=== PATIENT | male | born 1965 | race American Indian/Alaskan Native ===

== ENCOUNTER 2024-10-24 12:14 | Emergency (ER) | payer OTHER ==
[~2024-10-24] VITALS: Ht 170.2 cm; Wt 64.9 kg
[2024-10-24] MEDS ORDERED: SODIUM CHLORIDE 0.9% 500 ML IV PRN (12:30)
[2024-10-24 12:33] LABS: BASOPHILS 1.4 % (0-2); EOSINOPHILS 3.5 % (0-6); HEMATOCRIT 30.1 % (35.0-50.0); HEMOGLOBIN 10.3 g/dL (12.0-18.0); LYMPHOCYTES 16.8 % (24-44); MCH 34.6 (27-36); MCHC 34.3 g/dl (30-36); MCV 100.9 fl (81-99); MONOCYTES 12.1 % (0-12); NEUTROPHILS 66.2 % (39-80); PLATELET COUNT 226 K/uL (140-440); RBC 2.98 M/ul (4.3-5.7); RDW 12.8 (10.5-15.0)
[2024-10-24 12:40] LABS: ALBUMIN 3.2 g/dL (3.4-5.0); ALBUMIN/GLOBULIN RATIO 0.91 (1.1-2.4); ANION GAP 17.6 (7-21); BILIRUBIN, TOTAL 0.6 ng/dL (0.2-1.0); BUN/CREATININE RATIO 10.93 (6.0-28.6); CALCIUM 8.7 mg/dL (8.5-10.1); CREATININE, SERUM 1.28 mg/dL (0.70-1.30); MAGNESIUM 1.5 mg/dL (1.8-2.4); POTASSIUM 3.6 mmol/L (3.5-5.1); PROTEIN, TOTAL 6.7 g/dL (6.4-8.2)
[2024-10-24] MEDS ORDERED: MAGNESIUM OXIDE 400 MG TABLET PO ONE (13:00)
[2024-10-24] MEDS ORDERED: MAGNESIUM SULFATE 2 GM/50 ML BAG IV ONE (13:00)
[2024-10-24] MEDS ORDERED: MAGNESIUM400 MG PO (13:55)
[2024-10-24 14:25] VITALS: BP 122/71
== END 2024-10-24 14:25 | disposition home or self-care (01) ==
LOC: ED 12:14
PROVIDERS: Emergency Medicine
DX: E83.42 Hypomagnesemia (principal); R53.1 Weakness; F10.10 Alcohol abuse, uncomplicated; Y90.5 Blood alcohol level of 100-119 mg/100 ml
CPT/HCPCS: 36415; 80053; 83735; 85025; 96365; 99283-25; G0480; J3475; J7040

== ENCOUNTER 2025-07-20 19:13 | Inpatient (IN) | payer OTHER ==
[~2025-07-20] VITALS: Ht 172.7 cm; Wt 64.3 kg
[~2025-07-20 19:13] MED LIST: MAGNESIUM400 MG PO
[2025-07-20 19:26] LABS: BASOPHILS 0.8 % (0.2-1.2); EOSINOPHILS 5.8 % (0.8-7.0); LYMPHOCYTES 36.2 % (21.8-53.1); MCH 33.2 PG (25.7-32.2); MCHC 36.2 g/dL (32.3-36.5); MCV 91.8 fL (79.0-92.2); MONOCYTES 9.7 % (5.3-12.2); NEUTROPHILS 47.3 % (34.0-67.9); RBC 2.80 M/uL (4.63-6.08)
[2025-07-20 19:58] LABS: ABO O; ANTIBODY SCREEN NEGATIVE; RH POSITIVE
[2025-07-20 20:15] LABS: ALCOHOL, MEDICAL 281.0 ng/dL (<3); ALT (SGPT) 60.0 U/L (14-59); AST (SGOT) 75.0 U/L (15-37); GLOMERULAR FILTRATION RATE,EST 120.0 mL/min (>60); PROTEIN, TOTAL 6.6 g/dL (6.4-8.2); UREA NITROGEN 2.0 mg/dL (7-18)
[2025-07-20 20:22] LABS: BLOOD/HGB, URINE TRACE-I (Negative); KETONE, URINE NEGATIVE (Negative); LEUK ESTERASE, URINE NEGATIVE (negative); NITRITE, URINE NEGATIVE (negative)
[2025-07-20] MEDS ORDERED: SODIUM CHLORIDE 0.9% 1,000 ML IV PRN (20:30)
[2025-07-20 20:31] LABS: BACTERIA, URINE NONE SEEN /hpf (negative); CASTS, URINE NONE SEEN \\lpf; CRYSTALS, URINE NONE SEEN (0-1+); EPITHELIAL CELLS, URINE SQUAMOUS 1+ /lpf (0-1+); REFLEX CULTURE, URINE No (No)
[2025-07-20 20:37] LABS: AMPHETAMINES, URINE NEGATIVE (NEGATIVE); BARBITURATES, URINE NEGATIVE (NEGATIVE); BENZODIAZEPINE, URINE NEGATIVE (NEGATIVE); CANNABINOID, URINE NEGATIVE (NEGATIVE); COCAINE, URINE NEGATIVE (NEGATIVE); ECSTASY, URINE NEGATIVE (NEGATIVE); FENTANYL, URINE NEGATIVE (NEGATIVE); METHADONE, URINE NEGATIVE (NEGATIVE); OPIATES, URINE NEGATIVE (NEGATIVE); OXYCODONE, URINE NEGATIVE (NEGATIVE); PHENCYCLIDINE, URINE NEGATIVE (NEGATIVE)
[2025-07-20] MEDS ORDERED: DIPHTH,PERTUSS(ACELL),TET VAC 0.5 ML SYRINGE IM ONE (21:00)
[2025-07-20] MEDS ORDERED: THIAMINE HCL 200 MG/2 ML VIAL IV ONE (21:00)
[2025-07-20] MEDS ORDERED: SODIUM CHLORIDE 0.9% 1,000 ML IV SCH (21:30)
[2025-07-20] MEDS ORDERED: ACETAMINOPHEN 325 MG TAB PO PRN (21:30)
[2025-07-20] MEDS ORDERED: LIDOCAINE 2% VISCOUS 6 ML SYR TOP ONE (21:45)
--- NOTE | 2025-07-20 22:15 | NUR ---
pt ARRIVED TO CCU ROOM #126 FROM ED VIA ED STRETCHER WITH ED RN VIKY. pt AWAKE AND INSTERACTIVE WITH STAFF. C-COLLAR REMAINS IN PLACE, TO BE LEFT ON UNTIL CLEARED TO REMOVE BY MD PER REPORT. BED ALARM ON FOR SAFETY. pt TRANSFERRED TO CCU BED, pt ABLE TO SCOOT SELF OVER. VSS, pT ON RA. RR EVEN AND UNLABORED. IV SITES X2 WNL, BRISK BLOOD RETURN NOTED. IV FLUIDS HUNG AND INFUSNG DIRECTED VIA RIGHT AC SITE. HEART MONITOR IN PLACE, SINUS RHYTHM WITH HR WNL. MALE PUREWICK IN PLACE AND HOOKED TO WALL SUCTION-HAD IN PLACE WHNE ARRIVED FROM ED. 1CM ABRASION AND 2CM LACERATION REPORTED TO BACK OF HEAD, SUPERVISOR TRANSFERRING AND BOXING WITH NO RAGHAVENDRA, SUTURES, ECT. CHUCKS PLACED BEHIND HEAD WITH VERY SCANT CONTACT DRAINAGE D/T POSITON OF WOUNDS AND pt LAYING IN BED. PUPILS ROUND, EQUAL AND REACTIVE TO LIGHT. pt ENGAGING WITH STAFF, A/O TO SELF AND PLACE, KNEW MONTH BUT THOUGHT IT WAS " OR 2024". EQUAL STRENGTH NOTED TO BUE AND BLE. pt DENIES NUMBNESS AND TINGLING. REPORTS SOME PAIN TO LEFT SHOULDER, BUT REPORTS THIS IS CHRONIC D/T HEAVY LIFTING. SMALL ABRASION ALSO NOTED TO LEFT ELBOW WHEN COMPLETING SKIN CHECK WITH SECOND LETI SALMON.
[2025-07-20 22:20] VITALS: BP 161/88
[2025-07-20 23:00] VITALS: BP 163/77; BP 176/94
--- NOTE | 2025-07-20 23:00 | NUR ---
PERSON TO CONTACT/NIECE EVERT MARES CALLED AND ASKED HOW pt WAS DOING. NISHAYY ASKED IF THERE WERE RAGHAVENDRA OR SUTURES TO pt's HEAD WOUNDS, UPDATED THERE WAS NOT AND THAT ABRASION AND LACERATION ARE HOLDEN AND DO NOT REQUIRE FURTHER INTERVENTION IN REGARDS TO WOUND CLOSURE PER REPORT FROM ED MD. CHARELY TRANSFERRED TO pt ROOM AND TALKING TO pt VIA PHONE. BED ALARM ON AND CALL LIGHT IN REACH.
--- NOTE | 2025-07-20 23:15 | NUR ---
male external catheter leaking, keaton aleman in room to remove and complete kyara care. new gown in place and pt boosted in bed. keaton aleman completed new admit bedside swallow eval and provided pt with prn tylenol. call light in reach and bed alarm on for safety.
[2025-07-21] VITALS (8 sets, daily range): BP systolic 102–169; BP diastolic 69–94
--- NOTE | 2025-07-21 00:27 | NUR ---
CHARLEY MARES CALLED AGAIN ASKING HOW pt WAS DOING. UPDATED THAT pt RECEIVED PRN TYLENOL AND IS NOW SLEEPING IN BED. CHARLEY ASKED AGAIN IF THE pt HAS RAGHAVENDRA OR SUTURES FOR HIS HEAD WOUND, EDUCATED THAT PER ED MD WOUNDS DID NOT REQUIRE SUCH INTERVENTIONS. CHARLEY ASKED IF pt HAD AN IV, EDUCATED THAT pt DOES HAVE TWO AND IS RECEIVING IV FLUIDS. NO FURTHER QUESTIONS.
--- NOTE | 2025-07-21 01:13 | NUR ---
PT resting in bed on back, c-collar remains in place and secure. bed alarm on for safety and call light in reach. pt remains on ra, rr even and unlabored. hr wnl, heart monitor remains on place.
--- NOTE | 2025-07-21 03:03 | NUR ---
vs and i&o's complete, pt assisted with use of urinal, voided 700mls. no acute changes to assessment. pupils remain round equal and reactive to light, pt a/o to self, place, date, and states, "oh it's the sabbath". c-collar remains in place. pt boosted in bed, no additional needs or concerns. call light in reach and bed alarm on for safety.
--- NOTE | 2025-07-21 04:33 | NUR ---
rounded on pt, pt resting in bed with eyes closed. on ra, rr even and unlabored. no distress noted.bed alarm on and call light in reach.
[2025-07-21 05:31] LABS: BASOPHILS 0.8 % (0.2-1.2); EOSINOPHILS 5.2 % (0.8-7.0); LYMPHOCYTES 22.9 % (21.8-53.1); MCH 33.9 PG (25.7-32.2); MCHC 37.2 g/dL (32.3-36.5); MCV 91.3 fL (79.0-92.2); MONOCYTES 7.8 % (5.3-12.2); NEUTROPHILS 62.9 % (34.0-67.9); RBC 2.86 M/uL (4.63-6.08)
--- NOTE | 2025-07-21 05:41 | NUR ---
rounded on pt, pt awake and resting in bed. remains on ra, rr even and unlabored. no needs or concerns verbalzied, call light in reach and bed alarm on for safety.
[2025-07-21 05:51] LABS: ALT (SGPT) 54.0 U/L (14-59); AST (SGOT) 69.0 U/L (15-37); GLOMERULAR FILTRATION RATE,EST 125.0 mL/min (>60); PROTEIN, TOTAL 6.1 g/dL (6.4-8.2); UREA NITROGEN 2.0 mg/dL (7-18)
--- NOTE | 2025-07-21 07:39 | NUR ---
dr hogue made aware of am sodium level of 124, per md okay to continue current iv fluids going for now (ns @100mls/hr).
[2025-07-21] MEDS ORDERED: MAGNESIUM SULFATE 2 GM/50 ML BAG IV ONE ×2 (07:45→10:00)
[2025-07-21] MEDS ORDERED: POTASSIUM CHLORIDE 40 MEQ,LIDOCAINE HCL 1% 40 MG in DEXTROSE 5% 250 ML IV ONE (07:45)
--- NOTE | 2025-07-21 08:53 | NUR ---
DR. MONTANA IN ROOM WITH PATIENT AT THIS TIME DISCUSSING PLAN OF CARE. ORDER REC'D TO GIVE ANOTHER 2 GM OF IV MAG, CHECK A PHOSPHOROUS LEVEL AND A SHOULDER XRAY. PATIENT STILL WORKING ON HIS BREAKFAST. C-COLLAR REMOVED WITH THE OKAY OF DR. MONTANA IN ROOM. PT TOLERATED THIS WELL. WILL CONTINUE TO MONITOR.
[2025-07-21] MEDS ORDERED: SODIUM CHLORIDE 0.9% 1,000 ML IV SCH (09:45)
[2025-07-21] MEDS ORDERED: ACETAMINOPHEN 325 MG TAB PO PRN (09:45)
[2025-07-21] MEDS ORDERED: THIAMINE HCL 200 MG/2 ML VIAL IV SCH (09:49)
[2025-07-21] MEDS ORDERED: FOLIC ACID 1 MG/0.2 ML ML IV SCH (09:49)
[2025-07-21] MEDS ORDERED: LORazepam 2 MG/ML VIAL IV/IM PRN (10:00)
[2025-07-21] MEDS ORDERED: LIDOCAINE HCL 4% 1 EACH PATCH TD SCH (10:08)
[2025-07-21] MEDS ORDERED: PHARMACY RENAL DOSE ADJUSTMENT 1 DOSE MISC PO SCH (12:00)
[2025-07-21] MEDS ORDERED: TRIAMCINOLONE ACET 40 MG/ML VIAL 1 ML IAARTIC ONE (12:30)
[2025-07-21] MEDS ORDERED: LIDOCAINE HCL 1% 5 ML SDV INJ ONE (12:30)
--- NOTE | 2025-07-21 12:33 | NUR ---
PATIENT IN CHAIR WITH BLE ELEVTAED. PATIENT HAS IV FLUIDS INFUSING, LUNCH TRAY IN FRONT OF HIM. 1200 ASSESSMENT COMPLETE AND DOCUMENTED. PATIENT RATED PAIN 4/10 IN R. SHOULDER, BE DENIED WANTING ANYTHING FOR PAIN. PATIENT STATED HE DIDN'T MIND BEING AT THE HOSPITAL BECAUSE "AT LEAST HE FEELS SAFE HERE". PATIENT WAS ASKED IF HE FELT SAFE AT HOME, HE STATED "YES, I HAVE EVERYTHING I NEED THERE". I THEN ASKED HIM WHERE HE DOESN'T FEEL SAFE, HE SAID "RESIDENTIAL" PATIENT DENIED FURTHER NEEDS AT THIS TIME. CALL LIGHT AND PERSONAL BELONGINGS ARE WITHIN REACH.
--- NOTE | 2025-07-21 12:46 | NUR ---
DR. MONTANA IN ROOM TO GIVE PATIENT A STEROID INJECTION IN RIGHT SHOULDER. PT SIGNS CONSENT FORM AND IS SITTING UP RIGHT IN BED FOR THIS INJECTION.
[2025-07-21] MEDS ORDERED: LABETALOL HCL 20 MG/4 ML VIAL IV PRN (13:00)
[2025-07-21 13:43] LABS: GLOMERULAR FILTRATION RATE,EST 111.0 mL/min (>60); UREA NITROGEN 2.0 mg/dL (7-18)
--- NOTE | 2025-07-21 13:53 | NUR ---
1300 LABS RESULTED AND SODIUM IS 122. DR. MONTANA CALLED BY THIS RN AND UPDATED. ORDER REC'D ON PHONE TO INCREASE IVF BACK TO 100 ML/HR AND RE CHECK LABS IN THE AM. PATIENT RESTING IN BED AT THIS TIME.
--- NOTE | 2025-07-21 14:18 | EKG ---
[facility] [address] [place] [address] Signed Normal sinus rhythm Left anterior fascicular block Minimal voltage criteria for LVH, may be normal variant ( [place] product ) Septal infarct , age undetermined Abnormal ECG No previous ECGs available Confirmed by Geo Montana DO ([id number]) on 07/21/2025 2:18:15 PM Electronically Signed By: GEO MONTANA DO 07/21/25 1418 PATIENT NAME: ADELINE MARES Electrocardiogram DATE OF : 63 PHYSICIAN: GEO MONTANA DO REPORT #: [id number] REPORT IS CONFIDENTIAL AND NOT TO BE RELEASED WITHOUT AUTHORIZATION
--- NOTE | 2025-07-21 18:00 | NUR ---
REPORT RECEIVED FROM CCU/RN CARE ASSUMED. PT MOVED VIA BED TO [facility]. ORIENTED TO ROOM AND ROUTINE, CALL LIGHT AND NEEDED ITEMS IN REACH. PT AGREES TO CALL FOR ANY NEEDS
[2025-07-21 18:12] LABS: GLOMERULAR FILTRATION RATE,EST 114.0 mL/min (>60); UREA NITROGEN 4.0 mg/dL (7-18)
--- NOTE | 2025-07-21 18:17 | NUR ---
ASSISTED PT TO STAND AND REPOSITION. PILLOW PLACED IN SEAT FOR COMFORT PT BACK TO RECLINER FEET ELEVATED AGREES HE IS COMFORTABLE FOR NOW. VILLAFANA DRAINING CLEAR YELLOW URINE. SATS 99% ON RA
--- NOTE | 2025-07-21 19:06 | NUR ---
PT RESTING IN BED. GOT PT FRESH ICE WATER AND A WARM BLANKET. CALL LIGHT WITHIN REACH, PT REPORTS NEEDING NOTHING MORE AT THIS TIME.
--- NOTE | 2025-07-21 19:08 | NUR ---
PT WAS JUST ADMITTED TO MED SURG FLOOR. ROOM CLEANED AND TRASH REMOVED. PT RTEQUESTED WARM BLANKET, THIS MEDICAL CENTER MANAGER GOT PT A WARM BLANKET. CALL LIGHT WITHIN REACH. PT REQUESTED LIGHTS OUT, BUT REPORTED NEEDING NOTHING MORE AT THIS TIME.
--- NOTE | 2025-07-21 19:18 | NUR ---
REPORT RECEIVED FROM LETI AMOR. PATIENT RESTING WITH EYES CLOSED, RESPIRATIONS EVEN AND UNLABORED. NO NEEDS IDENTIFIED, CALL LIGHT IN REACH.
--- NOTE | 2025-07-21 20:05 | NUR ---
PATIENT WOKE TO RN ENTERING ROOM, ANSWERED ALL QUESTIONS APPROPRIATELY. LIDOCAINE PATCH REMOVED, NEW IVF BAG HUNG. IVF CONTINUING TO INFUSE WITHOUT DIFFICULTY. ASSESSMENT COMPLETE. RESPIRATIONS EVEN AND UNLABORED WITH A DRY COUGH. HE DENIES ANY NEEDS. CALL LIGHT IN REACH, VS OBTAINED AND RECORDED.
[2025-07-21] MEDS ORDERED: LIDOCAINE PATCH REMOVAL 1 EA TD SCH (21:00)
[2025-07-21] MEDS ORDERED: MELATONIN 3 MG TAB PO PRN (21:00)
--- NOTE | 2025-07-21 23:59 | NUR ---
ROUNDED ON PATIENT, PATIENT RESTING WITH EYES CLOSED, RESPIRATIONS EVEN AND UNLABORED. NO NEEDS IDENTIFIED, CALL LIGHT IN REACH, BED ALARM ON.
[2025-07-22] VITALS (8 sets, daily range): BP systolic 143–169; BP diastolic 67–83
--- NOTE | 2025-07-22 01:39 | NUR ---
ROUNDED ON PATIENT, PATIENT RESTING WITH EYES CLOSED, RESPIRATIONS EVEN AND UNLABORED. WOKE TO RN VERBAL CUES, VS OBTAINED AND RECORDED, OUTPUT DOCUMENTED. PATIENT STATES HE IS WARM, EXTRA BLANKET REMOVED PER REQUEST. NO OTHER NEEDS, CALL LIGHT IN REACH, BED ALARM ON.
--- NOTE | 2025-07-22 02:30 | NUR ---
RN CALLED TO ROOM BY RETAIL LOAN ORIGINATOR. PATIENT STATED HE HAD ROLLED OVER AND HIS IV IN THE LAC IS NOW BLOODY. DRIED BLOOD AND SOME LEAKAGE NOTED FROM THE IV SITE. IV FLUSHED, WNL. IV DRESSING CHANGED, NO OTHER NEEDS. NO SIGNS OF INFILTRATION. PATIENT DENIES FURTHER NEEDS, CALL LIGHT IN REACH
--- NOTE | 2025-07-22 04:27 | NUR ---
ROUNDED ON PATIENT, PATIENT RESTING WITH EYES CLOSED, RESPIRATIONS EVEN AND UNLABORED. NO NEEDS IDENTIFIED, CALL LIGHT IN REACH
--- NOTE | 2025-07-22 05:15 | NUR ---
ROUNDED ON PATIENT, NEW IV BAG HUNG PER ORDER. IVF INFUSING WITHOUT DIFFICULTY. PATIENT DENIES ANY ALC WITHDRAWL SYMPTOMS. HE DENIES ANY NEEDS, MOTORS AND GENERATORS INSPECTOR IN ROOM TO GET VITALS.
[2025-07-22 05:25] LABS: BASOPHILS 0.7 % (0.2-1.2); EOSINOPHILS 1.9 % (0.8-7.0); LYMPHOCYTES 16.6 % (21.8-53.1); MCH 33.9 PG (25.7-32.2); MCHC 36.5 g/dL (32.3-36.5); MCV 92.8 fL (79.0-92.2); MONOCYTES 11.1 % (5.3-12.2); NEUTROPHILS 69.4 % (34.0-67.9); RBC 3.19 M/uL (4.63-6.08)
[2025-07-22 05:38] LABS: GLOMERULAR FILTRATION RATE,EST 117.0 mL/min (>60); UREA NITROGEN 4.0 mg/dL (7-18)
--- NOTE | 2025-07-22 07:24 | NUR ---
UR CLINICAL REVIEW: MCG-PER MCG REVIEW MEETS INPT FOR SYSTEMIC CONDITION WITH SEVERE ELECTROLYTE ABNORMALITIES. NEED FOR SERIAL LABS AND CIWA. [facility]O OBS 07/21/25 @ 0948 ORDER MATCHES REG NO AUTH REQUIRED FOR OBS VISIT PER MODA GUIDELINES DISCHARGE TO HOME WHEN STABLE. ADD 07/22/25
--- NOTE | 2025-07-22 07:40 | NUR ---
REPORT FROM RIO LANDEROS.
[2025-07-22] MEDS ORDERED: MULTIVITAMINS THERAPEUTIC 1 EA TAB PO SCH (08:00)
--- NOTE | 2025-07-22 08:02 | NUR ---
MORNING ASSESSMENT IS COMPLETE. PATIENT IS SITTING UP IN BED TO EAT BREAKFAST, APPETITE IS GOOD, NO N/V. CIWA IS 0, NO SIGNS OF WITHDRAWL. PATIENT DENIES OTHER NEEDS AT THIS TIME.
--- NOTE | 2025-07-22 09:00 | NUR ---
INTO SEE PATIENT. PERSONAL HEALTH INFORMATION REVIEWED. PATIENT LIVES IN THE BASEMENT OF HIS HOUSE AND HIS NIECE'S FAMILY LIVES ABOVE. HE HAS 12 STEPS TO GET DOWN THERE AND THAT IS HOW HE FELL. HE DOES NOT USE ANY DME. HE DOES NOT DRIVE. DENIES DIFFCULTY PAYING UTLITIES OR OBTAINING FOOD. ASKED PATIENT IF HE WOULD LIKE US TO HELP WITH ANY ALCOHOL COUNSELING SERVICES. PATIENT REFUSED. GAVE HIS A PHAMPLET WITH [employer] AND [facility] IF HE EVER NEEDS THE PHONE NUMBERS OR AGREES TO SERVICE. ALSO ASKED PATIENT IF HE WOULD LIKE ME TO SET HIM UP WITH A PCP AND HE STATED "NO I DO NO WANT YOU TO FIND ME A DOCOTOR I AM TO BUSY FOR THAT." PATIENT TO GO HOME WITH FAMILY WHEN MEDICALLY CLEARED FOR DISCHARGE. NO QUESTIONS OR FUTHER CM NEEDS AT THIS TIME.
--- NOTE | 2025-07-22 09:24 | NUR ---
PATIENT IS RESTING IN BED. DOCTOR ENTERED THE ROOM FOR UPDATES.
--- NOTE | 2025-07-22 09:41 | NUR ---
LIDOCAINE PATCH TO RIGHT SHOULDER FOR 4/10 PAIN ASSOCIATED WITH FALL AT HOME.
[2025-07-22] MEDS ORDERED: SODIUM CHLORIDE 1 GM TAB PO SCH (09:44)
--- NOTE | 2025-07-22 10:07 | NUR ---
LUNCH ORDER PLACED FOR PATIENT.
--- NOTE | 2025-07-22 10:20 | NUR ---
PATIENT GIVEN 1GM SODIUM TABLET.
--- NOTE | 2025-07-22 10:46 | NUR ---
PATIENT IS SLEEPING WITH REGULAR RESPIRATIONS. OT IS WORKING WITH PATIENT SOON.
--- NOTE | 2025-07-22 12:22 | NUR ---
medications reconciled. patient takes no chronic medications
--- NOTE | 2025-07-22 12:36 | NUR ---
CIWA SCORE REMAINS ZERO. PATIENT DENIES ANY NEEDS AT THIS TIME.
--- NOTE | 2025-07-22 12:39 | NUR ---
VISITED DURING SPIRITUAL CARE ROUNDS. PT APPEARED TO BE SLEEPING. DID NOT DISTURB. PROVIDED PRAYER.
--- NOTE | 2025-07-22 14:12 | NUR ---
PATIENT IS SALINE LOCKED FOR SHOWER. CIWA REMAINS ZERO.
--- NOTE | 2025-07-22 15:52 | NUR ---
IVF RESUMED AFTER PATIENT SHOWER. PATIENT IS RESTING IN BED, REPORTS FEELING BETTER, DENIES NEEDS.
--- NOTE | 2025-07-22 18:10 | NUR ---
pt denies needs att, ciwa remains 0.
--- NOTE | 2025-07-22 19:19 | NUR ---
GOT REPORT FROM DAY SHIFT NURSE.
--- NOTE | 2025-07-22 20:14 | NUR ---
PATIENT CURRENTLY SLEEPING, REGULAR RESPIRATIONS NOTED.
--- NOTE | 2025-07-22 22:18 | NUR ---
PATIENT GIVEN A SANDWHICH BOX AND EVENING MEDICATIONS. PATIENT DENIES ANY NEEDS. HE DENIES PAIN. PATIENT ON RA. PATIENT WATCHING TV. BED LOW POSITION, BED ALARM ON.
--- NOTE | 2025-07-22 23:32 | NUR ---
PATIENT SITTING UP IN BED WATCHING TV. DENIES ANY CARES AT THIS TIME.
[2025-07-23 01:59] VITALS: BP 165/75
--- NOTE | 2025-07-23 03:38 | NUR ---
RESTING, ROOM AIR, NO S/SX DISTRESS, EYES CLOSED, REPOSITIONS SELF IN BED. USES URINAL.
[2025-07-23 05:24] VITALS: BP 157/74
[2025-07-23 05:55] VITALS: BP 157/74
[2025-07-23 06:01] LABS: GLOMERULAR FILTRATION RATE,EST 122.0 mL/min (>60); UREA NITROGEN 6.0 mg/dL (7-18)
--- NOTE | 2025-07-23 06:53 | NUR ---
VERBAL ORDER FROM MD TO JORGE NOW AND REDRAW SODIUM LAB AT 1000. ORDER REPEATED BACK TO VERIFY AND ORDER PLACED.
--- NOTE | 2025-07-23 06:55 | NUR ---
DR PADRON HERE, IVF STOPPED PER NEW ORDERS. PT AWARE. AWARE OF 1000 AM NA LAB PRIOR TO DC. STATED 'OK'
[2025-07-23] MEDS ORDERED: THIAMINE HCL 100 MG TAB PO SCH (08:00)
[2025-07-23] MEDS ORDERED: FOLIC ACID 1 MG TAB PO SCH (08:00)
[2025-07-23 09:10] VITALS: BP 127/59
--- NOTE | 2025-07-23 09:11 | NUR ---
HOURLY ROUNDING. PATIENT ATE ALL HIS BREAKFEAST. HE DOSEN'T REALLY TALK MUCH. CALL LIGHT PLACED WITHIN REACH. AM CARE COMPLETED
--- NOTE | 2025-07-23 09:41 | NUR ---
PATIENT RECEPTIVE TO PCP AT [facility]. CALLED TO SCHEDULE, NO ANSWER, MESSAGE LEFT. WILL FAX RECORDS TO CLINIC WELL.
[2025-07-23] MEDS ORDERED: FOLIC ACID1 MG PO (09:55)
[2025-07-23] MEDS ORDERED: VITAMIN B-1100 MG PO (09:55)
[2025-07-23] MEDS ORDERED: SODIUM CHLORI1000 M2 PO (09:55)
--- NOTE | 2025-07-23 09:56 | NUR ---
CLINICALS FAXED TO [facility]. PATIENT UPDATED. STATES HE CAN NOT REMEMBER HIS PHONE NUMBER. REFUSES HOME HEALTH AT THIS TIME WELL. NO OTHER CM NEEDS AT THIS TIME.
[2025-07-23 10:25] VITALS: BP 127/59
== END 2025-07-23 12:40 | disposition home or self-care (01) | DRG 897 ==
LOC: ED 19:13 → CCU 19:14 → MS 07-21 17:38
PROVIDERS: Internal Medicine; ADMIT Student in an Organized Health Care Education/Training Program; ATTEND Student in an Organized Health Care Education/Training Program
PROC: 3E02340 Introduction of Influenza Vaccine into Muscle, Percutaneous Approach (ICD-10-PCS; 2025-07-20)
PROC: 3E0U33Z Introduction of Anti-inflammatory into Joints, Percutaneous Approach (ICD-10-PCS; principal; 2025-07-21)
DX: F10.129 Alcohol abuse with intoxication, unspecified (principal); E87.1 Hypo-osmolality and hyponatremia; S01.01XA Laceration without foreign body of scalp, initial encounter; Z23 Encounter for immunization; M19.011 Primary osteoarthritis, right shoulder; R29.6 Repeated falls; Z79.899 Other long term (current) drug therapy; Y90.8 Blood alcohol level of 240 mg/100 ml or more; W10.9XXA Fall (on) (from) unspecified stairs and steps, initial encounter
CPT/HCPCS: 36415; 51702; 70450; 71045; 72125; 72170; 73020; 80048; 80053; 80307; 81001; 82550; 83605; 83690; 83735; 84100; 84295; 85025; 86850; 86900; 86901; 90471; 90715; 93005; 93010; 96361; 96374; 97162; 97166; 97535; 99285-25; A6590; A9270; G0480; J3301; J3411; J3475; J3480; J3490; J7030; J7060